=== PATIENT | female | born 1970 | race Caucasian/White ===

== ENCOUNTER → 2017-01-20 | Outpatient (CLI) | payer OTHER | LOC: ULTRA 10:13 | DX: E04.1 Nontoxic single thyroid nodule (principal) ==

== ENCOUNTER → 2017-04-13 | Outpatient (CLI) | payer OTHER | LOC: RAD 14:45 | DX: N64.4 Mastodynia (principal) ==

== ENCOUNTER → 2018-06-14 | Outpatient (CLI) | payer OTHER | LOC: RAD 12:46 | DX: Z12.31 Encounter for screening mammogram for malignant neoplasm of breast (principal) ==

== ENCOUNTER 2019-10-13 06:15 | Emergency (ER) | payer OTHER ==
[~2019-10-13] VITALS: Ht 154.9 cm; Wt 72.1 kg
[2019-10-13 06:49] LABS: HEMATOCRIT 37.3 % (37.0-47.0); HEMOGLOBIN 12.3 gm/dL (12.0-15.0); MCH 29.5 pg (26.0-34.0); MCHC 33.1 g/dL (28.0-37.0); MCV 89.3 fL (80.0-100.0); RBC 4.18 mil/uL (4.20-5.00); RDW 13.2 % (10.5-14.5); WBC 6.6 thou/uL (4.0-11.0)
[2019-10-13 07:02] LABS: ANION GAP 12 mmol/L (7-16); BUN 13 mg/dL (7-18); CALCIUM 9.2 mg/dL (8.5-10.1); CHLORIDE 97 mmol/L (98-107); CO2 26 mmol/L (21-32); CREATININE 1.1 mg/dL (0.6-1.0); GLUCOSE 266 mg/dL (74-106); POTASSIUM 3.4 mmol/L (3.5-5.1); SODIUM 135 mmol/L (136-145)
[2019-10-13 07:13] LABS: ALBUMIN 3.1 g/dL (3.4-5.0); LIPASE 193 U/L (73-393); SGOT 179 U/L (15-37); SGPT 90 U/L (30-65); TOTAL BILIRUBIN 1.2 mg/dL (<0.1-1.0); TOTAL PROTEIN 7.4 g/dL (6.4-8.2); TROPONIN-I <0.06 ng/mL (<0.06)
[2019-10-13] MEDS ORDERED: METFORMIN HCL500 M3 PO (07:49)
[2019-10-13] MEDS ORDERED: HYDROCHLOROTHIA25 M2 PO (07:50)
[2019-10-13] MEDS ORDERED: VALSARTAN160 MG PO (07:50)
[2019-10-13] MEDS ORDERED: TOPROL XL50 MG PO (07:50)
[2019-10-13] MEDS ORDERED: PROZAC20 M1 PO (07:51)
[2019-10-13] MEDS ORDERED: OMEPRAZOLE 20 M20 M1 PO (07:52)
[2019-10-13 07:54] LABS: URINE BILIRUBIN NEGATIVE (Negative); URINE BLOOD NEGATIVE (Negative); URINE CLARITY CLEAR; URINE COLOR YELLOW; URINE GLUCOSE-RANDOM* 2+ (Negative); URINE KETONES 1+ (Negative); URINE LEUKOCYTES-REFLEX NEGATIVE (Negative); URINE NITRITE-REFLEX NEGATIVE (Negative); URINE PROTEIN (DIPSTICK) TRACE (Negative); URINE UROBILINOGEN >= 8.0 E.U./dl (0.2-1.0)
--- NOTE | 2019-10-13 08:42 | EKG ---
[facility] [address] ELECTROCARDIOGRAM REPORT Name: HOMA ROBBINS Margret Room #: [facility]#: [id number] Admission: 10/13/19 Attend Phys: Discharge: Date of : 66 Report #: [id number] THIS REPORT FOR: cc: Marcin Oliveira James A. DO Couchonnal, Luis F. MD ~ THIS REPORT FOR: //name// [facility] ED Test Date: 2019-10-13 Test Time: 07:14:45 Pat Name: HOMA ROBBINS Department: Room: Gender: Abrasive Sawyer: jennifer : 1970 Requested By: Jyoti Wren Order Number: [id number] MD: Edouard Pickett Measurements Intervals [place] Rate: 64 P: 36 OR: 167 QRS: -2 QRSD: 87 T: 48 QT: 534 QTc: 551 Interpretive Statements Sinus rhythm Borderline T wave abnormalities No previous ECG available for comparison Electronically Signed On 10-13-2019 8:41:07 CDT by Edouard Pickett [email or web address] <ELECTRONICALLY SIGNED> By: Edouard Pickett MD 10/13/19840 3 3 Edouard Pickett MD /BRIGID
[2019-10-13] MEDS ORDERED: ZOFRAN4 MG PO (09:36)
[2019-10-13] MEDS ORDERED: TRAMADOL 50 MG50 MG PO (09:36)
[2019-10-13 10:12] VITALS: BP 145/68
[2019-11-09] MEDS ORDERED: SIMVASTATIN40 MG PO (09:13)
[2019-11-09] MEDS ORDERED: ESTRADIOL 1 MG T1 M1 PO (09:13)
[2019-11-09] MEDS ORDERED: ADIPEX-P37.5 MG PO (09:13)
[2019-11-09] MEDS ORDERED: VALSARTAN-HCTZ1 EAC2 PO (09:15)
[2019-11-09] MEDS ORDERED: ZOFRAN4 MG PO (09:15)
[2019-11-09] MEDS ORDERED: ULTRAM50 MG PO (09:16)
[2019-11-09] MEDS ORDERED: CLARITIN10 M3 PO (09:33)
[2019-11-09] MEDS ORDERED: ZYRTEC10 M5 PO (09:33)
== END 2019-10-13 10:13 | disposition home or self-care (01) ==
LOC: ER 06:15
PROVIDERS: Student in an Organized Health Care Education/Training Program
DX: K80.20 Calculus of gallbladder without cholecystitis without obstruction (principal); R11.2 Nausea with vomiting, unspecified; Z88.2 Allergy status to sulfonamides; Z88.8 Allergy status to other drugs, medicaments and biological substances

== ENCOUNTER → 2019-10-26 | Outpatient (CLI) | payer OTHER ==
[~2019-10-26] MED LIST: HYDROCHLOROTHIA25 M2 PO; METFORMIN HCL500 M3 PO; OMEPRAZOLE 20 M20 M1 PO; PROZAC20 M1 PO; TOPROL XL50 MG PO; TRAMADOL 50 MG50 MG PO; VALSARTAN160 MG PO; ZOFRAN4 MG PO
== END ==
LOC: ULTRA 08:46
DX: K80.80 Other cholelithiasis without obstruction (principal)

== ENCOUNTER 2019-11-15 06:14 | Observation (INO) | payer OTHER ==
[~2019-11-15] VITALS: Ht 152.4 cm; Wt 71.2 kg
[~2019-11-15 06:14] MED LIST changes: +ADIPEX-P37.5 MG PO; +CLARITIN10 M3 PO; +ESTRADIOL 1 MG T1 M1 PO; +SIMVASTATIN40 MG PO; +ULTRAM50 MG PO; +VALSARTAN-HCTZ1 EAC2 PO; +ZYRTEC10 M5 PO
[2019-11-15 07:04] VITALS: BP 135/86
[2019-11-15 07:20] LABS: CALCIUM 8.3 mg/dL (8.5-10.1); POTASSIUM 3.1 mmol/L (3.5-5.1)
[2019-11-15] MEDS ORDERED: OXYCODONE HCL 55 MG PO (08:50)
[2019-11-15] MEDS ORDERED: ACETAMINOPHEN325 M1 PO (08:50)
[2019-11-15] MEDS ORDERED: COLACE 100 MG100 MG PO (08:50)
[2019-11-15] MEDS ORDERED: MIRALAX17 GM PO (08:50)
[2019-11-15 09:29] VITALS: BP 135/86
[2019-11-15 10:09] LABS: BE(vivo) -1.1 mmol/L (-2 to +3); HCO3 27.2 mmol/L (22.0-26.0); PO2 71.7 mmHg (80.0-100.0); pH 7.247 (7.360-7.450); sO2 91.3 % (92.0-98.0)
[2019-11-15 13:39] VITALS: BP 141/83
[2019-11-15 19:02] VITALS: BP 122/79
[2019-11-16 00:25] VITALS: BP 107/62
--- NOTE | 2019-11-16 00:50 | NUR ---
ASSESSMENT COMPLETE. THROUGH SHIFT PATIENT NOTED TO BE AWAKE AND ALERT.HAVING A CONVERSATION. SHE ASKED FOR SOME SNACKS AT BEDTIME AND SHE IS EATING WITH NO COMPLAINS OF NAUSEA. SHE DENIES SOA OR COUGH. SHE CONTINUES TO BE ON THE CAPNO MONITOR, WITH 02/2L/NC. SATURATIONS IN THE RANGE OF 99%.PATIENT WAS GIVEN SCHEDULED TYLENOL. THAT SEEMS TO BE HANDLING HER PAIN, SHE HAS NOT COMPLAINED ANY FURTHER TO REQUIRE NARCOTICS AT THIS POINT.LAP SITES TO ABDOMEN LOOK GOOD.
--- NOTE | 2019-11-16 00:53 | NUR ---
IT WAS NOTED IN THE COMPUTER THAT THERE WAS ORDERS PUT IN EARLIER IN THE DAY AT AROUND 1201 FOR PATIENT TO BE ON TELEMETRY.PATIENT HOWEVER HAS BEEN ON A REGULAR MEDSURG FLOOR. CALL PUT OUT TO DR RILEY AT ABOUT 0030 HRS. I TALKED TO ANSWERING SERVICE-PURPOSE IS TO INFORM THE DOCTOR OF THIS ERROR.PATIENT IS HOWEVER STABLE AT THIS TIME AND DOES NOT SEEM TO REQUIRE ANY HIGHER LEVEL OF CARE.SHE REMAINS UNDER OBS STATUS.
[2019-11-16 04:03] VITALS: BP 113/68
[2019-11-16 04:47] LABS: HEMATOCRIT 32.8 % (37.0-47.0); HEMOGLOBIN 10.9 gm/dL (12.0-15.0); MCH 30.1 pg (26.0-34.0); MCHC 33.3 g/dL (28.0-37.0); MCV 90.5 fL (80.0-100.0); RBC 3.62 mil/uL (4.20-5.00); RDW 13.8 % (10.5-14.5); WBC 11.8 thou/uL (4.0-11.0)
[2019-11-16 05:08] LABS: ALBUMIN 2.6 g/dL (3.4-5.0); CALCIUM 8.2 mg/dL (8.5-10.1); PHOSPHORUS 2.3 mg/dL (2.5-4.9); POTASSIUM 3.5 mmol/L (3.5-5.1)
[2019-11-16 08:34] VITALS: BP 114/70
[2019-11-16] MEDS ORDERED: OXYCODONE HCL 55 MG PO (08:36)
[2019-11-16 10:29] VITALS: BP 135/86
--- NOTE | 2019-11-16 10:38 | NUR ---
PT CARE ASSUMED AT 0700. A&Ox4. LAPSITES TENDER TO TOUCH BUT TOLERABLE. NO EDEMA OR REDNESS. PAIN MANAGED WELL WITH PAIN MEDICATION. ACHS WITH MODERATE SLIDING SCALE. IV REMOVED AND DISCHARGE INSTRUCTIONS GIVEN. PT ALREADY HAS NEW POST OP MEDICATIONS AT HOME. CALL LIGHT IN REACH. WILL CONTINUE TO MONITOR.
--- NOTE | 2019-11-16 13:08 | PATH ---
[facility] [address] [place] [address] PATHOLOGY RPT PROCEDURE Name: HOMA ROBBINS Room #: 439-P [facility] Henry M.R.#: [id number] Admission: 11/15/19 Date of : 66 Discharge: 11/16/19 Report #: [id number] Path Case #: [id number] [facility] Accession Number: [id number] . 01 Material submitted: . gallbladder - GALLBLADDER . 01 Clinical history: . cholelithiasis . 02 Diagnosis: Gallbladder, cholecystectomy: - Mild chronic cholecystitis. - Cholelithiasis. - Incidental reactive lymph node. (IUV/db; 11/16/2019) LBQ 11/16/2019 1154 Local . 02 Electronically signed: . Therese Schaeffer MD, Pathologist NPI- [id number] . 01 Gross description: . The specimen is received in formalin labeled "Sharon, Homa, gallbladder" and consists of an intact green whitney gallbladder measuring 7.3 x 3.0 x 2.5 cm. The margin is inked black. Opening reveals a lumen filled with green bile and multiple fragmented yellow black calculi measuring between 0.1 and 1.1 cm. The mucosa is green and velvety with multiple scattered yellow flecks with an average wall thickness of 0.1 cm. No masses are identified. A lymph node is identified adjacent the gallbladder neck measuring 0.5 cm. Flitch Hanger sections are submitted in A1. (SDY; 11/15/2019) SYU/SYU 11/15/2019 1648 Local . 02 Pathologist provided ICD-10: K80.10 . 02 CPT . 134640 Specimen Comment: A courtesy copy of this report has been sent to [phone] Specimen Comment: Report sent to Performed at: [address] [id number] MD Tab Daugherty MD Phone: [phone] Performed at: [address] [address] PATHOLOGY RPT PROCEDURE Name: HOMA ROBBINS Margret Room #: 439-P YAZMIN Figueroa M.RCassandra#: [id number] Admission: 11/15/19 Date of : 66 Discharge: 11/16/19 Report #: [id number] Path Case #: [id number] [address] [place] [address], [place] [id number] MD Therese Schaeffer MD Phone: [phone]
== END 2019-11-16 11:49 | disposition home or self-care (01) ==
LOC: OR 06:14 → TBA 06:22 → OR 09:38 → 4S 13:22 → OR 15:51 → 4S 20:33
PROVIDERS: Anesthesiology; ADMIT Surgery
DX: Z03.818 Encounter for observation for suspected exposure to other biological agents ruled out (principal); K80.20 Calculus of gallbladder without cholecystitis without obstruction
CPT/HCPCS: 50010; 50101; 50249; 50411; 50555; 50558; 51489; 52265; 52266; 53307; 53310; 53312; 54022; 54118; 55245; 56462; 56525; 56526; 62110; 62900; 70005

== ENCOUNTER → 2020-10-15 | Outpatient (CLI) | payer OTHER ==
[~2020-10-15] MED LIST changes: +ACETAMINOPHEN325 M1 PO; +COLACE 100 MG100 MG PO; +MIRALAX17 GM PO; +OXYCODONE HCL 55 MG PO
== END ==
LOC: RAD 15:03
PROVIDERS: ATTEND Family Medicine
DX: Z12.31 Encounter for screening mammogram for malignant neoplasm of breast (principal)